=== PATIENT | female | born 1950 | race Caucasian/White ===

== ENCOUNTER → 2016-11-22 | Outpatient (CLI) | payer MEDICARE ==
--- NOTE | 2016-11-22 13:03 | PCVCIMAG ---
APPROVED REPORT Exam: Stress Echocardiogram Indication: chest pain, neck pain Patient Location: Echo lab HR: 82 bpm Rhythm: NSR Procedure The patient underwent an Exercise Stress Test using the Krunal Protocol. Blood pressure, heart rate, and EKG were monitored. An Echocardiogram was performed by settlement technician in four stages in quad fashion. At peak stress, four selected images were obtained and placed side by side with resting images for comparison. Stress Test Details Stress Test: Exercise stress was performed using a manual protocol. HR Resting HR: 82 bpmMax Heart Rate (APMHR): 155 bpm Max HR Achieved: 148 bpmTarget HR (85% APMHR): 131 bpm % of APMHR: 95 Recovery HR: 96 bpm HR response to stress: Normal HR response to stress BP Resting BP: 140/78 mmHg Max BP: 168/78 mmHg ECG Resting ECG: Sinus Rhythm Stress ECG: Sinus Rhythm ST Change: Non-ischemic Maximum ST Deviation: 0.35 mm Arrhythmia: APC's Recovery ECG: Sinus Rhythm Clinical Reason for Termination: Completed protocol, Maximal effort Stress Symptoms: NONE Exercise duration: 5 min 54 sec Exercise capacity: 7 METs Overall Exercise Capacity for Age: Poor Scale: Sedentary Angina Score: None Stress ECG Conclusion ECG: Non-ischemic Clinical: Non-ischemic Echocardiographic findings: Non-ischemic Non-ischemic stress echocardiogram Melendrez Treadmill Score is 3.3 which is Moderate risk. Pre-Stress Echo The resting Echocardiogram showed normal left ventricular contractility with an estimated Ejection Fraction of about 55-60%. Normal wall motion in all segments on baseline images. Post-Stress Echo The stress Echocardiogram showed normal left ventricular contractility with an estimated Ejection Fraction of about 60-65%. Normal augmentation of wall motion in all segments on post stress images. Clinical No clinical or ECG evidence for ischemia. Conclusion Clinical Response: Non-ischemic Exercise Capacity: Below Average Stress ECG Response: Non-ischemic Stress Echo Images: Non-ischemic Echo contrast used for optimal endocardial definition. <Conclusion> Echo contrast used for optimal endocardial definition.
== END | disposition home or self-care (01) ==
LOC: PCVCIMAG 10:43
PROVIDERS: ATTEND Internal Medicine
DX: R07.9 Chest pain, unspecified (principal); M54.2 Cervicalgia
CPT/HCPCS: 36415; 93325; 93351; G0463